=== PATIENT | female | born 1950 | race Caucasian/White ===

== ENCOUNTER 2016-10-22 18:17 | Inpatient (IN) ==
[2016-10-22] MEDS ORDERED: 0.9 % Sodium Chloride 1,000 ML IVC ONE ×3 (18:40→20:57)
[2016-10-22] MEDS ORDERED: *HR* Morphine 2 MG/ML SYRINGE IVP ONE (18:40)
[2016-10-22] MEDS ORDERED: Ondansetron 4 MG/2 ML VIAL IVP ONE (18:40)
--- NOTE | 2016-10-22 19:07 | Emergency Department Note ---
START Narrative - START START: 66-year-old female presents with multiple complaints. Patient states that she has been not feeling well for the past month. She reports nausea but has not vomited over the past week. Patient denies fever, chest pain, palpitations, diarrhea, rash. Patient states her symptoms have become progressively worse over the past few days. Denies near syncopal symptoms. On physical examination the patient has lungs that are clear to auscultation bilaterally. The heart rate was tachycardic without evidence of murmur. Abdomen is tender to palpation in bilateral lower quadrants without evidence of rigidity, guarding , rebound. Patient denies vaginal bleeding or vaginal discharge. ECG - interpreted by ED physician. Rate 127 sinus tachycardia, no STEMI
[2016-10-22] MEDS ORDERED: *HR* Morphine 10 MG/ML VIAL IVP ONE (19:15)
--- NOTE | 2016-10-22 19:15 | Emergency Department Note ---
Disposition Clinical Impression: Hyperglycemia, Dehydration Vomiting Qualifiers: Vomiting type: unspecified Vomiting Intractability: non-intractable Nausea presence: with nausea Qualified Code(s): R11.2 - Nausea with vomiting, unspecified Disposition: Admitted As Inpatient Condition: Good Referrals: Nikhil Mcallister MD [Primary Care Provider] - Forms: ED Satisfaction Letter Time of Disposition: 21:32 General Adult HPI - General Chief complaint: ED Nausea/Vomiting/Diarrhea Stated complaint: "Sick for months" Time Seen by Provider: 10/22/16 19:11 Source: patient Mode of arrival: ambulatory Limitations: no limitations Nursing Notes Reviewed: Yes Vital Signs Reviewed: Yes - History of Present Illness HPI Narrative: As noted in the start note, this is a 66-year-old female with history of non- insulin-dependent diabetes that presents with significant malaise, generalized weakness, and exertional dyspnea that is worsening over the last few days, but has been going on for the last month or so. It is associated with nausea and loss of appetite today. She denies any chest pain, palpitations, diaphoresis. She denied any abdominal pain to me except for when she is vomiting. She did no abdominal pain to Dr. Wiley. She denies any swelling, fever, confusion, headache, vision problems, productive cough, changes in bowel movements. She does know urinary frequency. She denies any dysuria or hematuria. She denies medication noncompliance, but does note that she has not checked her blood sugar in weeks. Pain Scale: 10 - Related Data Home Medications Medication Instructions Recorded Confirmed Aspirin Enteric Coated [Aspirin EC] 81 mg PO DAILY 06/01/15 11/17/15 Atorvastatin Calcium [Lipitor] 20 mg PO DAILY 06/01/15 11/17/15 Nebivolol [Bystolic] 2.5 mg PO DAILY 06/01/15 11/17/15 Ranitidine HCl [Zantac] 150 mg PO BID 06/01/15 11/17/15 Lisinopril [Zestril] 10 mg PO DAILY 11/17/15 11/17/15 Previous Rx's Medication Instructions Recorded Cyanocobalamin (Vitamin B-12) 1,000 mcg PO DAILY #30 tablet 06/05/15 [Vitamin B-12] Cyclobenzaprine HCl 5 mg PO TID PRN #21 tablet 06/05/15 OxyCODONE Immed Rel [Roxicodone 5 5 mg PO Q4HR PRN #28 tablet 06/05/15 MG] Allergies Allergy/AdvReac Type Severity Reaction Status Date / Time aspirin Allergy Hives Verified 11/17/15 10:31 Sulfa (Sulfonamide Allergy Rash Verified 03/16/15 18:10 Antibiotics) povidone-iodine AdvReac Rash Verified 11/17/15 10:31 [From Betadine] soap [From Betadine] AdvReac Rash Verified 11/17/15 10:31 All systems ED: reviewed and negative except as stated. Past Medical History - Past Medical History Attestation: Yes The following information was validated with the patient. Source: patient Medical history: Reports: diabetes, hypertension Surgical history: Reports: non-contributory, orthopedic, other Psychiatric history: Reports: no psych history TALENT SOURCER history: Reports: no TALENT SOURCER history - Social History Smoking Status: Never smoker Smokeless Tobacco Status: No Alcohol use: Reports: none Drug use: Reports: none Physical Exam - Head Head exam: atraumatic, normocephalic, normal inspection - Eye Eye exam: Present: normal appearance, PERRL, EOMI - ENT ENT exam: normal exam, normal oropharynx, mucous membranes moist - Neck Neck exam: Present: normal inspection, full ROM, trachea midline - Chest Chest inspection: Present: normal inspection, symmetric chest wall rise - Respiratory Respiratory exam: Clear to auscultation bilaterally without wheezes rales or rhonchi Cardiovascular Patient is tachycardic. Otherwise regular without murmurs. - Abdominal Exam Abdominal exam was benign for me. Abdomen was soft and nontender without masses , rigidity, or guarding. - Extremities Exam Extremities exam: Present: normal inspection, full ROM - Back Exam Back exam: Present: normal inspection, full ROM. Absent: tenderness, CVA tenderness (R), CVA tenderness (L) - Neurological Exam Neurological exam: Present: alert, oriented X3, CN II-XII intact - Psychiatric Psychiatric exam: Present: normal affect, normal mood - Skin Skin exam: Present: warm, dry, intact. - General Limitations: no limitations General appearance: alert, in no apparent distress Course - Reevaluation(s) Reevaluation #1: Blood sugar elevated to 665. PH and bicarbonate are normal. Patient is receiving 2 L of IV fluids and 10 units of subcutaneous insulin. Original urine was apparently misplaced by lab. We will resend the urine. Patient accepted to hospitalist by Dr. Arango. She is aware the urine is not resulted yet. Time: 21:31 Vital Signs Temperature 98.8 F 10/22/16 18:19 Pulse Rate 137 10/22/16 18:19 Respiratory Rate 21 10/22/16 18:19 Blood Pressure 171/86 10/22/16 18:19 O2 Sat by Pulse Oximetry 96 10/22/16 18:19 Temperature 98.8 F 10/22/16 18:29 Pulse Rate 114 10/22/16 20:04 Respiratory Rate 21 10/22/16 18:29 Blood Pressure 166/111 10/22/16 20:04 O2 Sat by Pulse Oximetry 96 10/22/16 18:29 Oxygen Delivery Oxygen Delivery Room Air Medical Decision Making - Lab Data Result diagrams: 10/22/16 19:13 10/22/16 20:11 Lab Results 10/22/16 10/22/16 10/22/16 Range/Units 19:13 19:20 20:11 WBC 9.9 (4.3-11.1) K/mcL RBC 4.84 (3.82-4.97) M/mcL Hgb 15.1 (11.5-15.4) g/dL Hct 44.0 (35.3-44.9) % MCV 90.9 (83.0-100.0) fL MCH 31.2 (28.0-33.3) pg MCHC 34.3 (31.6-35.5) g/dL RDW 12.8 (11.5-14.5) % Plt Count 181 (140-400) K/mcL MPV 12.0 (9.4-12.4) fL Immature Gran % 0.7 (0-4) % Seg Neutrophils % 73.6 % Lymphocytes % 14.1 % Monocytes % 11.1 % Eosinophils % 0.2 % Basophils % 0.3 % Neutrophils # 7.3 (1.6-8.9) K/mcL Lymphocytes # 1.4 (0.6-4.6) K/mcL Monocytes # 1.1 (0.0-1.3) K/mcL Eosinophils # 0.0 (0.0-0.6) K/mcL Basophils # 0.0 (0.0-0.2) K/mcL VBG pH 7.42 (7.32-7.42) pH Units VBG pCO2 38 L (41-51) mmHg VBG pO2 50 H (25-40) mmHg VBG HCO3 24.6 (21-27) mEq/L Sodium 128 L (136-145) mEq/L Potassium 4.9 H (3.5-4.5) mEq/L Chloride 95 L (98-109) mEq/L Carbon Dioxide 21 (19-29) mEq/L BUN 8 (7-20) mg/dL Creatinine 1.18 H (0.57-1.11) mg/dL Est GFR ( Amer) 56 L (> 60) Est GFR (Non-Af Amer) 46 L (> 60) BUN/Creatinine Ratio 7 (6-26) Glucose 665 H* (70-99) mg/dL Calculated Osmolality 296 (280-300) Lactic Acid (0.5-2.2) mmol/L Calcium 9.3 (8.6-10.8) mg/dL Total Bilirubin 0.9 (0.2-1.2) mg/dL AST 17 (5-34) Units/L ALT 27 (0-55) Units/L Alkaline Phosphatase 155 H (38-126) Units/L Serum Total Protein 6.4 (6.0-8.3) g/dL Albumin 2.7 L (3.5-5.0) g/dL Globulin 3.7 H (2.4-3.5) g/dL Albumin/Globulin Ratio 0.7 L (1.1-2.2) Lipase 186 H (8-78) Units/L Beta-Hydroxybutyric Acd (0.02-0.27) mmol/L 10/22/16 10/22/16 Range/Units 20:11 20:11 WBC (4.3-11.1) K/mcL RBC (3.82-4.97) M/mcL Hgb (11.5-15.4) g/dL Hct (35.3-44.9) % MCV (83.0-100.0) fL MCH (28.0-33.3) pg MCHC (31.6-35.5) g/dL RDW (11.5-14.5) % Plt Count (140-400) K/mcL MPV (9.4-12.4) fL Immature Gran % (0-4) % Seg Neutrophils % % Lymphocytes % % Monocytes % % Eosinophils % % Basophils % % Neutrophils # (1.6-8.9) K/mcL Lymphocytes # (0.6-4.6) K/mcL Monocytes # (0.0-1.3) K/mcL Eosinophils # (0.0-0.6) K/mcL Basophils # (0.0-0.2) K/mcL VBG pH (7.32-7.42) pH Units VBG pCO2 (41-51) mmHg VBG pO2 (25-40) mmHg VBG HCO3 (21-27) mEq/L Sodium (136-145) mEq/L Potassium (3.5-4.5) mEq/L Chloride (98-109) mEq/L Carbon Dioxide (19-29) mEq/L BUN (7-20) mg/dL Creatinine (0.57-1.11) mg/dL Est GFR ( Amer) (> 60) Est GFR (Non-Af Amer) (> 60) BUN/Creatinine Ratio (6-26) Glucose (70-99) mg/dL Calculated Osmolality (280-300) Lactic Acid 2.5 H (0.5-2.2) mmol/L Calcium (8.6-10.8) mg/dL Total Bilirubin (0.2-1.2) mg/dL AST (5-34) Units/L ALT (0-55) Units/L Alkaline Phosphatase (38-126) Units/L Serum Total Protein (6.0-8.3) g/dL Albumin (3.5-5.0) g/dL Globulin (2.4-3.5) g/dL Albumin/Globulin Ratio (1.1-2.2) Lipase (8-78) Units/L Beta-Hydroxybutyric Acd 0.64 H (0.02-0.27) mmol/L - EKG Data EKG #1 EKG attestation: Yes I reviewed and interpreted this EKG. EKG results narrative: Sinus tachycardia 127 with left axis deviation. No ST elevation or depression. No significant change when compared with 01/22/2016 other than rate.
[2016-10-22 19:27] LABS: VBG HCO3 24.6 mEq/L (21-27); VBG PH 7.42 pH Units (7.32-7.42)
[2016-10-22 19:31] LABS: Basophils % 0.3 %; Eosinophils % 0.2 %; Hemoglobin 15.1 g/dL (11.5-15.4); Immature Granulocytes % 0.7 % (0-4); Lymphocytes # 1.4 K/mcL (0.6-4.6); Lymphocytes % 14.1 %; Mean Corpuscular HGB Conc 34.3 g/dL (31.6-35.5); Mean Corpuscular Hemoglobin 31.2 pg (28.0-33.3); Mean Corpuscular Volume 90.9 fL (83.0-100.0); Monocytes # 1.1 K/mcL (0.0-1.3); Monocytes % 11.1 %; Neutrophils # 7.3 K/mcL (1.6-8.9); Platelet Count 181 K/mcL (140-400); Red Blood Count 4.84 M/mcL (3.82-4.97); Red Cell Distribution Width 12.8 % (11.5-14.5); Segmented Neutrophils % 73.6 %
[2016-10-22 20:40] LABS: Albumin 2.7 g/dL (3.5-5.0); Albumin/Globulin Ratio 0.7 (1.1-2.2); Bilirubin,Total 0.9 mg/dL (0.2-1.2); Calcium 9.3 mg/dL (8.6-10.8); Globulin 3.7 g/dL (2.4-3.5); Potassium 4.9 mEq/L (3.5-4.5); Total Protein 6.4 g/dL (6.0-8.3)
[2016-10-22] MEDS ORDERED: Insulin Regular, Human 100 UNIT/ML SQ ONE (20:57)
--- NOTE | 2016-10-22 21:47 | Emergency Department Note ---
Disposition Clinical Impression: Hyperglycemia, Dehydration Vomiting Qualifiers: Vomiting type: unspecified Vomiting Intractability: non-intractable Nausea presence: with nausea Qualified Code(s): R11.2 - Nausea with vomiting, unspecified Disposition: Admitted As Inpatient Condition: Good General Adult HPI - General Chief complaint: ED Nausea/Vomiting/Diarrhea Stated complaint: "Sick for months" Time Seen by Provider: 10/22/16 19:11 Source: patient Mode of arrival: ambulatory Limitations: no limitations - History of Present Illness Pain Scale: 10 - Related Data Home Medications Medication Instructions Recorded Confirmed Aspirin Enteric Coated [Aspirin EC] 81 mg PO DAILY 06/01/15 10/22/16 Ranitidine HCl [Zantac] 150 mg PO BID 06/01/15 10/22/16 Atorvastatin [Lipitor] 10 mg PO HS 10/22/16 10/22/16 Cyclobenzaprine HCl 5 mg PO BID PRN 10/22/16 10/22/16 HYDROcodone/Acet 5/325 mg [[place] 1 tab PO Q6H PRN 10/22/16 10/22/16 5-325 mg] Hydrochlorothiazide [Microzide] 12.5 mg PO DAILY 10/22/16 10/22/16 Levothyroxine [Synthroid] 25 mcg PO 0630 10/22/16 10/22/16 Lisinopril [Zestril] 20 mg PO DAILY 10/22/16 10/22/16 amLODIPine [Norvasc] 5 mg PO DAILY 10/22/16 10/22/16 Previous Rx's Medication Instructions Recorded Cyanocobalamin (Vitamin B-12) 1,000 mcg PO DAILY #30 tablet 06/05/15 [Vitamin B-12] Allergies Allergy/AdvReac Type Severity Reaction Status Date / Time aspirin Allergy Hives Verified 11/17/15 10:31 Sulfa (Sulfonamide Allergy Rash Verified 03/16/15 18:10 Antibiotics) povidone-iodine AdvReac Rash Verified 11/17/15 10:31 [From Betadine] soap [From Betadine] AdvReac Rash Verified 11/17/15 10:31 Past Medical History - Past Medical History Medical history: Reports: diabetes, hypertension Surgical history: Reports: non-contributory, orthopedic, other Psychiatric history: Reports: no psych history SALES AND EVENTS COORDINATOR history: Reports: no SALES AND EVENTS COORDINATOR history - Social History Smoking Status: Never smoker Smokeless Tobacco Status: No Alcohol use: Reports: none Drug use: Reports: none Physical Exam - General Limitations: no limitations General appearance: alert, in no apparent distress Course - Reevaluation(s) Reevaluation #1: I saw the patient with the resident, Dr. Holman. We assumed care of the case at change of shift. Patient presents feeling ill for a couple of weeks but over the past couple of days been vomiting and now dry heaving. Unable to eat or drink at home. She looks dry clinically. Sugar is very high but she is not acidotic. She does have some ketones. She is on the verge of DKA but not fully in to it yet I think is a good idea to bring her in and get things corrected before she tips over. Time: 21:47 Vital Signs Temperature 98.8 F 10/22/16 18:19 Pulse Rate 137 10/22/16 18:19 Respiratory Rate 21 10/22/16 18:19 Blood Pressure 171/86 10/22/16 18:19 O2 Sat by Pulse Oximetry 96 10/22/16 18:19 Temperature 98.8 F 10/22/16 18:29 Pulse Rate 114 10/22/16 20:04 Respiratory Rate 21 10/22/16 18:29 Blood Pressure 166/111 10/22/16 20:04 O2 Sat by Pulse Oximetry 96 10/22/16 18:29 Oxygen Delivery Oxygen Delivery Room Air Medical Decision Making - Lab Data Result diagrams: 10/22/16 19:13 10/22/16 20:11 Lab Results 10/22/16 10/22/16 10/22/16 Range/Units 19:13 19:20 20:11 WBC 9.9 (4.3-11.1) K/mcL RBC 4.84 (3.82-4.97) M/mcL Hgb 15.1 (11.5-15.4) g/dL Hct 44.0 (35.3-44.9) % MCV 90.9 (83.0-100.0) fL MCH 31.2 (28.0-33.3) pg MCHC 34.3 (31.6-35.5) g/dL RDW 12.8 (11.5-14.5) % Plt Count 181 (140-400) K/mcL MPV 12.0 (9.4-12.4) fL Immature Gran % 0.7 (0-4) % Seg Neutrophils % 73.6 % Lymphocytes % 14.1 % Monocytes % 11.1 % Eosinophils % 0.2 % Basophils % 0.3 % Neutrophils # 7.3 (1.6-8.9) K/mcL Lymphocytes # 1.4 (0.6-4.6) K/mcL Monocytes # 1.1 (0.0-1.3) K/mcL Eosinophils # 0.0 (0.0-0.6) K/mcL Basophils # 0.0 (0.0-0.2) K/mcL VBG pH 7.42 (7.32-7.42) pH Units VBG pCO2 38 L (41-51) mmHg VBG pO2 50 H (25-40) mmHg VBG HCO3 24.6 (21-27) mEq/L Sodium 128 L (136-145) mEq/L Potassium 4.9 H (3.5-4.5) mEq/L Chloride 95 L (98-109) mEq/L Carbon Dioxide 21 (19-29) mEq/L BUN 8 (7-20) mg/dL Creatinine 1.18 H (0.57-1.11) mg/dL Est GFR ( Amer) 56 L (> 60) Est GFR (Non-Af Amer) 46 L (> 60) BUN/Creatinine Ratio 7 (6-26) Glucose 665 H* (70-99) mg/dL Calculated Osmolality 296 (280-300) Lactic Acid (0.5-2.2) mmol/L Calcium 9.3 (8.6-10.8) mg/dL Total Bilirubin 0.9 (0.2-1.2) mg/dL AST 17 (5-34) Units/L ALT 27 (0-55) Units/L Alkaline Phosphatase 155 H (38-126) Units/L Serum Total Protein 6.4 (6.0-8.3) g/dL Albumin 2.7 L (3.5-5.0) g/dL Globulin 3.7 H (2.4-3.5) g/dL Albumin/Globulin Ratio 0.7 L (1.1-2.2) Lipase 186 H (8-78) Units/L Beta-Hydroxybutyric Acd (0.02-0.27) mmol/L 10/22/16 10/22/16 Range/Units 20:11 20:11 WBC (4.3-11.1) K/mcL RBC (3.82-4.97) M/mcL Hgb (11.5-15.4) g/dL Hct (35.3-44.9) % MCV (83.0-100.0) fL MCH (28.0-33.3) pg MCHC (31.6-35.5) g/dL RDW (11.5-14.5) % Plt Count (140-400) K/mcL MPV (9.4-12.4) fL Immature Gran % (0-4) % Seg Neutrophils % % Lymphocytes % % Monocytes % % Eosinophils % % Basophils % % Neutrophils # (1.6-8.9) K/mcL Lymphocytes # (0.6-4.6) K/mcL Monocytes # (0.0-1.3) K/mcL Eosinophils # (0.0-0.6) K/mcL Basophils # (0.0-0.2) K/mcL VBG pH (7.32-7.42) pH Units VBG pCO2 (41-51) mmHg VBG pO2 (25-40) mmHg VBG HCO3 (21-27) mEq/L Sodium (136-145) mEq/L Potassium (3.5-4.5) mEq/L Chloride (98-109) mEq/L Carbon Dioxide (19-29) mEq/L BUN (7-20) mg/dL Creatinine (0.57-1.11) mg/dL Est GFR ( Amer) (> 60) Est GFR (Non-Af Amer) (> 60) BUN/Creatinine Ratio (6-26) Glucose (70-99) mg/dL Calculated Osmolality (280-300) Lactic Acid 2.5 H (0.5-2.2) mmol/L Calcium (8.6-10.8) mg/dL Total Bilirubin (0.2-1.2) mg/dL AST (5-34) Units/L ALT (0-55) Units/L Alkaline Phosphatase (38-126) Units/L Serum Total Protein (6.0-8.3) g/dL Albumin (3.5-5.0) g/dL Globulin (2.4-3.5) g/dL Albumin/Globulin Ratio (1.1-2.2) Lipase (8-78) Units/L Beta-Hydroxybutyric Acd 0.64 H (0.02-0.27) mmol/L Attestation Statement - Attestation Attestation: I, Dr. Gee, examined this patient [id number] and my medical decision- making was reviewed with Dr. Holman, Resident Physician. I agree with the documented findings, disposition and treatment plan as described except to the extent set forth below. Please see my progress notes for details.
[2016-10-22 21:54] LABS: Bilirubin,Urine Negative (Negative); Blood,Urine Small (Negative); Clarity,Urine Cloudy (Clear); Color,Urine Yellow (Yellow); Glucose,Urine (UA) >=1000 mg/dL (Normal); Ketones,Urine Negative (Negative); Leukocyte Esterase,Urine Small (Negative); Nitrite,Urine Positive (Negative); Protein,Urine 30 mg/dL (Neg-Trace); Specific Gravity,Urine > 1.030 (1.010-1.025); Urobilinogen,Urine Normal (Normal)
[2016-10-22 21:56] LABS: Bacteria,Urine Many per hpf (None-Few); Hyaline Casts,Urine None Seen per lpf (None-Few); WBC,Urine TNTC per hpf (0-3)
[2016-10-22 22:08] LABS: RBC,Urine 0-3 per hpf (0-3); Squamous Epithelial Cell,Urine Few per lpf (None-Few)
[2016-10-22] MEDS ORDERED: Naloxone 0.4 MG/ML INJ IVP PRN (22:50)
[2016-10-22] MEDS ORDERED: *HR* Morphine 2 MG/ML SYRINGE IVP PRN (22:50)
--- NOTE | 2016-10-22 22:56 | Internal Med History&Physical ---
Date of Encounter: 10/23/16 Time of Encounter: 22:53 Assessment and Plan (1) Hyperglycemia Current visit: Yes Status: Acute Patient appears to be an HHS. She is not acidotic, does not have an anion gap, she does not appear to be in DKA. Possibly triggered by urinary tract infection , complicated by medication noncompliance as the patient has not taken her victoza in 5 days. Patient has received a total of 2 L bolus in the emergency department, we will transition to maintenance fluid per [facility] protocol. Patient will be placed on IV insulin per protocol. BMPs every 4 hours, Accu-Cheks hourly (2) Urinary tract infection Current visit: Yes Status: Acute Patient has evidence of urinary tract infection on urinalysis with positive nitrites and small leukocyte esterase with too numerous to count white blood cells. We will place on Rocephin. Urine sent for culture. Qualifiers: Urinary tract infection type: acute cystitis Hematuria presence: without hematuria Qualified Code(s): N30.00 - Acute cystitis without hematuria (3) GWENDOLYN (acute kidney injury) Current visit: Yes Status: Acute Creatinine 1.18 on presentation, kidney function is normal at baseline. Likely due to dehydration. We will rehydrate as discussed above and recheck (4) Lactic acidosis Current visit: Yes Status: Acute Likely related to dehydration. Patient does not appear septic but we will fluid hydrate as discussed above. Antibiotics and been started, blood cultures are ordered. Will trend lactic acid. (5) Diabetes mellitus Current visit: No Status: Chronic Treated home with Victoza. Patient has not taken her medicine the last 5 days. Qualifiers: Diabetes mellitus type: type 2 Diabetes mellitus complication status: with unspecified complications Diabetes mellitus half-way insulin use: without superintendent marine oil terminal use Qualified Code(s): E11.8 - Type 2 diabetes mellitus with unspecified complications (6) Hypertension Current visit: No Status: Chronic Hold antihypertensives at this time. Qualifiers: Hypertension type: essential hypertension Qualified Code(s): I10 - Essential (primary) hypertension (7) DVT prophylaxis Current visit: Yes Status: Acute Heparin 5000 units subcutaneous twice a day. Internal Medicine - H&P: HPI Chief complaint: Abdominal pain Admitted From: Emergency Dept Plans for Post Hospital Care: Home History of present illness: Ms. Truong is a 66 year old female with history of ptr-[id number]-iqgsciorn type 2 diabetes and hypertension presents with generalized malaise and abdominal pain. She states she is not felt well for 3 weeks. Her symptoms began with a sore throat that resolved after a few days she continued to have generalized malaise and fatigue. No other week ago she had several episodes of vomiting and diarrhea that resolved after 2 days. She states over the last 5 days she has had some nausea and generalized abdominal pain with dry heaves but no vomiting or diarrhea. She also states that over the last several days she has had polyuria and polydipsia. Subjective fevers and chills. She denies chest pain, shortness of breath, dysuria, hematuria. Past Med Surg Social Fam HX - Past Medical History Medical history: diabetes, hypertension Psychiatric history: no psych history - Past Surgical History Surgical History: non-contributory, orthopedic, other - Social History Smoking Status: Never smoker Smokeless Tobacco Status: No Alcohol use: none Drug use: none - Family History Father Living Status: Hx Family Cardiac Disorders: Yes Internal Medicine - H&P: Meds Aspirin Enteric Coated [Aspirin EC] 81 mg PO DAILY 06/01/15 [History] Ranitidine HCl [Zantac] 150 mg PO BID 06/01/15 [History] Cyanocobalamin (Vitamin B-12) [Vitamin B-12] 1,000 mcg PO DAILY #30 tablet 06/05 [Rx] Atorvastatin [Lipitor] 10 mg PO HS 10/22/16 [History] Cyclobenzaprine HCl 5 mg PO BID PRN 10/22/16 [History] HYDROcodone/Acet 5/325 mg [[place] 5-325 mg] 1 tab PO Q6H PRN 10/22/16 [History] Hydrochlorothiazide [Microzide] 12.5 mg PO DAILY 10/22/16 [History] Levothyroxine [Synthroid] 25 mcg PO 0630 10/22/16 [History] Lisinopril [Zestril] 20 mg PO DAILY 10/22/16 [History] amLODIPine [Norvasc] 5 mg PO DAILY 10/22/16 [History] Allergies aspirin Allergy (Verified 11/17/15 10:31) Hives HIVES IF TAKES OVER 81 MG Sulfa (Sulfonamide Antibiotics) Allergy (Verified 03/16/15 18:10) Rash povidone-iodine [From Betadine] Adverse Reaction (Verified 11/17/15 10:31) Rash soap [From Betadine] Adverse Reaction (Verified 11/17/15 10:31) Rash All Systems PM: A 10-system review of systems was performed and is negative for pertinent findings except as documented above in the HPI. - Constitutional Constitutional: chills, fatigue, fever(s), lethargy, malaise - EENT Eyes: no blurry vision, no change in vision Nose, mouth and throat: sore throat, no sinus pain, no sinus pressure - Cardiovascular Cardiovascular ROS IM: no chest pain, no dyspnea, no edema, no lightheadedness, no palpitations, no syncope - Respiratory Respiratory: no cough, no dyspnea, no wheezing, no chest congestion, no excessive phlegm production, no change in phlegm color - Gastrointestinal Gastrointestinal: abdominal pain, loose stools, nausea, vomiting, no hematemesis , no hematochezia, no melena - Genitourinary Genitourinary: urinary frequency, no dysuria, no hematuria, no urinary hesitancy , no urinary incontinence, no urinary urgency - Musculoskeletal Musculoskeletal ROS IM: no numbness, no tingling - Psychiatric Psychiatric: no anxiety, no depression - Endocrine Endocrine IM: fatigue, polydipsia, polyuria, no flushing - Hematologic/Lymphatic Hematologic/Lymphatic: no easy bleeding, no easy bruising - Constitutional Vitals: Temp Pulse Resp BP Pulse Ox 98.8 F 114 16 155/86 96 10/22/16 18:29 10/22/16 20:04 10/22/16 22:28 10/22/16 22:28 10/22/16 18:29 General appearance: Present: A&O X 3, no acute distress - Head Head exam: Present: atraumatic, normal inspection, normocephalic - Eye Eye exam: Present: EOMI, PERRL - ENT ENT exam: Present: mucous membranes dry, normal oropharynx - Neck Neck exam general surgery: Present: full ROM. Absent: tenderness - Respiratory Respiratory exam: Present: CTAB. Absent: rales, rhonchi, wheezes - Cardiovascular Cardiovascular exam: Present: RRR. Absent: gallop, rubs, systolic murmur - GI/Abdominal GI/Abdominal exam: Present: normal bowel sounds, soft, tenderness (Diffuse, worse than the left lower quadrant), no peritoneal signs. Absent: distended - Extremities Exam Extremities exam: Present: warm. Absent: pedal edema, tenderness - Neurological Exam Neurological exam: Present: alert, oriented X3, no focal deficits Internal Med - H&P Results - Labs CBC & Chem 7: 10/22/16 19:13 10/23/16 00:34 Labs: Urine 10/22/16 Range/Units 21:34 Urine Color Yellow (Yellow) Urine Clarity Cloudy A (Clear) Urine pH 6.0 (5.0-8.0) pH Units Ur Specific Gilli[place] > 1.030 H (1.010-1.025) Urine Protein 30 H (Neg-Trace) mg/dL Urine Glucose (UA) >=1000 H (Normal) mg/dL
[2016-10-22] MEDS ORDERED: D5% in 0.45% NACL 1,000 ML IVC PRN (23:09)
[2016-10-22] MEDS ORDERED: Insulin LISPRO 300 UNITS/3 ML VIAL SQ PRN (23:09)
[2016-10-22] MEDS ORDERED: D5% in 0.45% NACL w KCl 20 MEQ/1,000 ML MLS IVC PRN (23:09)
[2016-10-22] MEDS ORDERED: *HR* Dextrose 50 % in Water (Syg) 50 ML SYRINGE IVP PRN (23:09)
[2016-10-22] MEDS ORDERED: Insulin LISPRO 300 UNITS/3 ML VIAL SQ ONE (23:09)
[2016-10-22] MEDS ORDERED: 0.45 % Sodium Chloride w/KCl 20 MEQ/1,000 ML MLS IVC SCH (23:15)
[2016-10-22] MEDS ORDERED: Insulin Human Regular 100 UNIT in 0.9 % Sodium Chloride 100 ML IVC SCH (23:15)
[2016-10-23 00:54] LABS: Estimated Average Glucose > 355 mg/dl; Hemoglobin A1C >= 14.1 %
[2016-10-23 00:56] LABS: BUN/Creatinine Ratio 7 (6-26); Blood Urea Nitrogen 8 mg/dL (7-20); Calcium 9.1 mg/dL (8.6-10.8); Carbon Dioxide 19 mEq/L (19-29); Chloride 102 mEq/L (98-109); Glucose 353 mg/dL (70-99); Osmolality,Calculated 292 (280-300); Potassium 4.3 mEq/L (3.5-4.5); eGFR For African Americans > 60 (> 60); eGFR For Non-African Americans 51 (> 60)
[2016-10-23 00:59] LABS: Sodium 135 mEq/L (136-145)
[2016-10-23] MEDS ORDERED: D5% in Water 1,000 ML IVC PRN (02:10)
[2016-10-23] MEDS ORDERED: Dextrose Gel 15 GM PO PRN ×2 (02:10)
[2016-10-23] MEDS: Insulin DETEMIR 100 UNIT/ML X5UNITS SQ SCH ×2 (02:27→20:31)
--- NOTE | 2016-10-23 02:37 | Event Note ---
Date of Encounter: 10/23/16 Time of Encounter: 00:45 66-year-old female with history of diabetes, presents with complaints of flulike symptoms including myalgia, malaise, anorexia and dry heaves for the last 1-2 weeks. Patient evaluated along with resident, agree essentially with Resident's H&P; Patient seen and examined at bedside. Noted to be awake, alert and oriented 3. Tachycardic, regular rate and rhythm. Lungs are clear to auscultation. Abdomen is soft, nondistended, mild left lower quadrant tenderness with no guarding or rigidity. Labs reviewed-elevated blood sugar with normal anion gap, normal pH on VBG, normal serum bicarbonate, elevated serum creatinine. Hyperglycemic hyperosmolar nonketotic state- due to dehydration from recent gastroenteritis and flulike illness, possible UTI. Start IV insulin drip along with aggressive IV hydration, monitor urine output and vital signs closely. Every hourly Accu-Cheks. Keep nothing by mouth for now until blood sugars begin to improve. Monitor and replete electrolytes as needed. High risk for complications. Diabetes mellitus type 2-poorly controlled, hemoglobin A1c noted to be more than 14%. patient would likely benefit from insulin treatment as an outpatient. Continue Accu-Chek blood glucose monitoring with IV insulin at this time. UTI- urinalysis suggestive of UTI with positive nitrite, leukocyte esterase and too numerous to count WBC. Start IV Rocephin and follow up urine culture. Noted to have lactic acidosis, which is mostly due to dehydration rather than sepsis. Continue IV hydration and monitor closely.
[2016-10-23] MEDS: Insulin LISPRO 300 UNITS/3 ML VIAL SQ SCH ×7 (03:33→17:31)
[2016-10-23] MEDS ORDERED: 0.9 % Sodium Chloride 1,000 ML ONE (03:37)
[2016-10-23] MEDS: 0.9 % Sodium Chloride 1,000 ML IVC SCH ×2 (04:03→14:11)
[2016-10-23] MEDS ORDERED: Insulin LISPRO 300 UNITS/3 ML VIAL SQ STA (04:04)
[2016-10-23 04:40] LABS: Basophils % 0.3 %; Eosinophils # 0.1 K/mcL (0.0-0.6); Eosinophils % 0.5 %; Hematocrit 39.3 % (35.3-44.9); Hemoglobin 13.7 g/dL (11.5-15.4); Lymphocytes # 1.9 K/mcL (0.6-4.6); Lymphocytes % 19.5 %; Mean Corpuscular HGB Conc 34.9 g/dL (31.6-35.5); Mean Corpuscular Hemoglobin 32.1 pg (28.0-33.3); Mean Platelet Volume 12.1 fL (9.4-12.4); Monocytes # 1.4 K/mcL (0.0-1.3); Monocytes % 14.4 %; Neutrophils # 6.4 K/mcL (1.6-8.9); Platelet Count 166 K/mcL (140-400); Red Blood Count 4.27 M/mcL (3.82-4.97); Red Cell Distribution Width 12.8 % (11.5-14.5); Segmented Neutrophils % 64.3 %
[2016-10-23 04:42] LABS: BUN/Creatinine Ratio 10 (6-26); Blood Urea Nitrogen 9 mg/dL (7-20); Calcium 8.8 mg/dL (8.6-10.8); Carbon Dioxide 25 mEq/L (19-29); Chloride 100 mEq/L (98-109); Glucose 253 mg/dL (70-99); Osmolality,Calculated 281 (280-300); Potassium 4.3 mEq/L (3.5-4.5); Sodium 132 mEq/L (136-145); eGFR For African Americans > 60 (> 60); eGFR For Non-African Americans > 60 (> 60)
[2016-10-23] MEDS: *HR* Heparin 5,000 UNIT/ML VIAL SQ SCH ×2 (06:13→17:25)
[2016-10-23 08:03] LABS: BUN/Creatinine Ratio 10 (6-26); Blood Urea Nitrogen 9 mg/dL (7-20); Calcium 8.6 mg/dL (8.6-10.8); Carbon Dioxide 21 mEq/L (19-29); Chloride 104 mEq/L (98-109); Glucose 168 mg/dL (70-99); Osmolality,Calculated 283 (280-300); Potassium 4.3 mEq/L (3.5-4.5); Sodium 135 mEq/L (136-145); eGFR For African Americans > 60 (> 60); eGFR For Non-African Americans > 60 (> 60)
[2016-10-23] MEDS: Ondansetron 4 MG/2 ML VIAL IVP PRN ×2 (08:19→17:30)
[2016-10-23] MEDS: Acetaminophen 325 MG TABLET PO PRN ×2 (08:20→17:25)
[2016-10-23] MEDS ORDERED: 0.9 % Sodium Chloride 1,000 ML IVC SCH (16:59)
--- NOTE | 2016-10-23 17:00 | Electrocardiograph Report ---
[address] [place] [address] Test Date: 2016-10-22 Pat Name: Kaylie Truong Department: 103 Room: 3A44 Gender: F Rhinologist: RENETTA : 1950 Requested By: Andrea Holman Order Number: [id number] Reading MD: John Juan MD Measurements Intervals [place] Rate: 127 P: 56 [place]: 145 QRS: 13 QRSD: 77 T: 72 QT: 276 QTc: 351 Interpretive Statements SINUS TACHYCARDIA POSSIBLE INFERIOR MYOCARDIAL INFARCTION, PROBABLY OLD Electronically Signed On 10-23-2016 16:58:59 EDT by John Juan MD
[2016-10-23] MEDS ORDERED: *HR* HYDROcodone/Acet 5/325 mg TABLET PO PRN (17:03)
--- NOTE | 2016-10-23 17:05 | Internal Med Progress Note ---
Date of Encounter: 10/23/16 Time of Encounter: 09:45 - Assessment and plan (1) Hyperglycemia Current Visit: Yes Status: Acute Assessment and plan: Glucose on admission was 665. No anion gap. She received insulin drip and fluid hydration with improvement of glucose levels to 300. Follow-up Accu-Chek is 128 this afternoon. We will continue Levemir at bedtime. Insulin sliding scale. Diabetic diet. Patient with hemoglobin A1c above 14. Patient will need insulin at home. Consult development educator. (2) GWENDOLYN (acute kidney injury) Current Visit: Yes Status: Resolved Assessment and plan: resolved. Prerenal secondary to dehydration. (3) Urinary tract infection Current Visit: Yes Status: Acute Assessment and plan: Urinalysis is suspected of urinary tract infection. Continue IV ceftriaxone. Follow up urine culture results. Qualifiers: Urinary tract infection type: acute cystitis Hematuria presence: without hematuria Qualified Code(s): N30.00 - Acute cystitis without hematuria (4) Dehydration Current Visit: Yes Status: Acute Assessment and plan: Secondary to severe hyperglycemia, urinary tract infection and sore throat. Improved. Given poor oral intake due to nausea, I will continue IV fluids (5) Diabetes mellitus Current Visit: Yes Status: Chronic Assessment and plan: Plan as above. Qualifiers: Diabetes mellitus type: type 2 Diabetes mellitus complication status: with hyperglycemia Diabetes mellitus intermediate project manager insulin use: without intermediate project manager use Qualified Code(s): E11.65 - Type 2 diabetes mellitus with hyperglycemia (6) Hypertension Current Visit: No Status: Chronic Assessment and plan: Not well controlled. Will resume dose of amlodipine. Holding him dose of lisinopril and HCTZ due to acute kidney injury. Monitor BPP Qualifiers: Hypertension type: essential hypertension Qualified Code(s): I10 - Essential (primary) hypertension (7) Lactic acidosis Current Visit: Yes Status: Resolved Assessment and plan: Resolved. Secondary to severe dehydration. (8) Obesity (BMI 30-39.9) Current Visit: No Status: Chronic Assessment and plan: BMI 32. - Subjective Interval history: Patient feels nauseous. No good oral intake. She did not eat most of her breakfast. - Constitutional Vitals: Temp Pulse Resp BP Pulse Ox 97.7 F 99 16 146/74 97 10/23/16 13:36 10/23/16 13:36 10/23/16 13:36 10/23/16 13:36 10/23/16 13:36 General appearance: Present: A&O X 3, no acute distress - Neck Neck exam general surgery: Present: supple, trachea midline - Respiratory Respiratory exam: Present: CTAB - Cardiovascular Cardiovascular exam: Present: RRR - GI/Abdominal GI/Abdominal exam: Present: normal bowel sounds, soft. Absent: distended, tenderness - Extremities Exam Extremities exam: Absent: pedal edema - Back Exam Back exam: Absent: CVA tenderness (L), CVA tenderness (R) - Neurological Exam Neurological exam: Present: alert, oriented X3, no focal deficits, strengths equal and symetr throughout. Absent: facial droop, speech deficit - Skin Skin exam: Absent: rash Internal Medicine: Result - Labs CBC & Chem 7: 10/23/16 04:10 10/23/16 07:44 Labs: Short CBC 10/23/16 Range/Units 04:10 WBC 9.9 (4.3-11.1) K/mcL Hgb 13.7 (11.5-15.4) g/dL Hct 39.3 (35.3-44.9) % Plt Count 166 (140-400) K/mcL Neutrophils # 6.4 (1.6-8.9) K/mcL BMP 10/23/16 10/23/16 04:10 07:44 Sodium 132 L 135 L Potassium 4.3 4.3 Chloride 100 104 Carbon Dioxide 25 21 BUN 9 9 Creatinine 0.92 0.89 Glucose 253 H 168 H Calcium 8.8 8.6 Consult Discharge Plan - Plan Referrals: Jeannette Mcallister MD [Non-Partnered Physician] - 11/05/16 9:00 am
[2016-10-24] MEDS: *HR* Heparin 5,000 UNIT/ML VIAL SQ SCH ×2 (05:52→17:06)
[2016-10-24] MEDS ORDERED: Levothyroxine 25 MCG TABLET PO SCH (06:30)
[2016-10-24 06:44] LABS: Basophils % 0.5 %; Eosinophils # 0.1 K/mcL (0.0-0.6); Eosinophils % 1.4 %; Hematocrit 32.1 % (35.3-44.9); Immature Granulocytes % 1.4 % (0-4); Lymphocytes # 1.6 K/mcL (0.6-4.6); Lymphocytes % 28.1 %; Mean Corpuscular Volume 94.1 fL (83.0-100.0); Mean Platelet Volume 11.8 fL (9.4-12.4); Monocytes # 0.6 K/mcL (0.0-1.3); Monocytes % 10.3 %; Neutrophils # 3.4 K/mcL (1.6-8.9); Platelet Count 129 K/mcL (140-400); Red Blood Count 3.41 M/mcL (3.82-4.97); Red Cell Distribution Width 13.2 % (11.5-14.5); Segmented Neutrophils % 58.3 %
[2016-10-24 06:54] LABS: BUN/Creatinine Ratio 13 (6-26); Blood Urea Nitrogen 10 mg/dL (7-20); Carbon Dioxide 25 mEq/L (19-29); Chloride 107 mEq/L (98-109); Glucose 190 mg/dL (70-99); Magnesium 1.6 mg/dL (1.6-2.6); Osmolality,Calculated 286 (280-300); Potassium 4.5 mEq/L (3.5-4.5); Sodium 136 mEq/L (136-145); eGFR For African Americans > 60 (> 60); eGFR For Non-African Americans > 60 (> 60)
[2016-10-24 07:13] LABS: Hemoglobin 10.9 g/dL (11.5-15.4)
[2016-10-24] MEDS: Insulin LISPRO 300 UNITS/3 ML VIAL SQ SCH ×6 (08:15→17:04)
[2016-10-24] MEDS: Acetaminophen 325 MG TABLET PO PRN ×2 (08:20→19:45)
[2016-10-24] MEDS ORDERED: Aspirin Enteric Coated 81 MG Tablet PO SCH (09:00)
[2016-10-24] MEDS ORDERED: Cyanocobalamin (B-12) 1,000 MCG TABLET PO SCH (09:00)
[2016-10-24] MEDS ORDERED: amLODIPine 5 MG TABLET PO SCH (09:00)
--- NOTE | 2016-10-24 09:34 | Discharge Summary ---
Date of Encounter: 10/24/16 Time of Encounter: 09:31 - Discharge Diagnosis (1) Hyperglycemia Priority: Primary Status: Acute (2) GWENDOLYN (acute kidney injury) Priority: Primary Status: Resolved (3) Urinary tract infection Priority: Primary Status: Acute Qualifiers: Urinary tract infection type: acute cystitis Hematuria presence: without hematuria Qualified Code(s): N30.00 - Acute cystitis without hematuria (4) Dehydration Priority: Primary Status: Acute (5) Diabetes mellitus Priority: Primary Status: Chronic Qualifiers: Diabetes mellitus type: type 2 Diabetes mellitus complication status: with hyperglycemia 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 insulin use: without local company intermodal truck driver use Qualified Code(s): E11.65 - Type 2 diabetes mellitus with hyperglycemia (6) Hypertension Priority: Secondary Status: Chronic Qualifiers: Hypertension type: essential hypertension Qualified Code(s): I10 - Essential (primary) hypertension (7) Lactic acidosis Priority: Primary Status: Resolved (8) Obesity (BMI 30-39.9) Priority: Secondary Status: Chronic - Discharge Medications Prescriptions: Blood Sugar Diagnostic [Glucose Test Strip] 1 each MC AD #90 strip Blood-Glucose Meter [Blood Glucose Monitoring] 1 each SQ AD #1 each glipiZIDE [Glucotrol] 5 mg PO BIDWM #60 tablet Insulin Glargine [Lantus] 15 unit SQ HS #60 mls Lancets [Blood Lancets] 1 each SQ AD #90 each Sulfamethoxazole/Trimeth SS [Bactrim SS] 1 each PO BID #2 tablet Home Medications: Aspirin Enteric Coated [Aspirin EC] 81 mg PO DAILY 06/01/15 [History] Ranitidine HCl [Zantac] 150 mg PO BID 06/01/15 [History] Cyanocobalamin (Vitamin B-12) [Vitamin B12] 1,000 mcg PO DAILY #30 tablet [Rx] Atorvastatin [Lipitor] 10 mg PO HS 10/22/16 [History] Cyclobenzaprine HCl 5 mg PO BID PRN 10/22/16 [History] HYDROcodone/Acet 5/325 mg [[place] 5-325 mg] 1 tab PO Q6H PRN 10/22/16 [History] Levothyroxine [Synthroid] 25 mcg PO 0630 10/22/16 [History] amLODIPine [Norvasc] 5 mg PO DAILY 10/22/16 [History] Blood Sugar Diagnostic [Glucose Test Strip] 1 each MC AD #90 strip 10/24/16 [Rx] Blood-Glucose Meter [Blood Glucose Monitoring] 1 each SQ AD #1 each 10/24/16 [Rx ] Insulin Glargine [Lantus] 15 unit SQ HS #60 mls 10/24/16 [Rx] Lancets [Blood Lancets] 1 each SQ AD #90 each 10/24/16 [Rx] Sulfamethoxazole/Trimeth SS [Bactrim SS] 1 each PO BID #2 tablet 10/24/16 [Rx] glipiZIDE [Glucotrol] 5 mg PO BIDWM #60 tablet 10/24/16 [Rx] Allergies/Adverse Reactions: Allergies aspirin Allergy (Verified 11/17/15 10:31) Hives HIVES IF TAKES OVER 81 MG Sulfa (Sulfonamide Antibiotics) Allergy (Verified 03/16/15 18:10) Rash povidone-iodine [From Betadine] Adverse Reaction (Verified 11/17/15 10:31) Rash soap [From Betadine] Adverse Reaction (Verified 11/17/15 10:31) Rash Procedures/tests Complete & Pending: Procedures Performed prior 72 hours Category Date Time Status ECG 12 lead ECG [ECG] Routine Y 10/24/16 08:36 Completed Date of admission: 10/23/16 02:38 Primary care physician: Nikhil Mcallister MD Consults: 10/23/16 09:27 Consult to Textile Stylist [CONS] Routine Comment: Reason for Consult: poorly controlled DM - Patient Status Disposition: Home, Self-Care Condition: Good Functional capacity at discharge: independent ambulation Overall status at discharge: patient is progressing back to baseline - Discharge Instructions Instructions: Urinary Tract Infection in Women (DC), Diabetes Mellitus Type 2 in Adults (DC), Chronic Hypertension (DC), Fall Prevention (DC) Follow Up With: Jeannette Mcallister MD [Non-Partnered Physician] - 11/05/16 9:00 am Additional Instructions: PLEASE CHECK YOUR BLOOD PRESSURE TWICE DAILY. WRITE DOWN NUMBERS AND BRING RECORD TO DOCTOR'S APPOINTMENT. PLEASE CHECK YOUR BLOOD SUGAR BEFORE MEALS AND AT BEDTIME EVERY DAY. WRITE DOWN NUMBERS AND BRING RECORD TO DOCTOR'S APPOINTMENT. RESUME TAKING YOUR LISINOPRIL NEXT FridayOCTOBER 28. PLEASE FOLLOW UP WITH YOUR DOCTOR FOR DIABETES, WEIGHT LOSS PROGRAM AND HIGH BLOOD PRESSURE. - Diet and Activity Activity: resume usual activities as tolerated Diet: diabetic diet, low fat, low cholesterol, low salt diet Interval History: PATIENT DENIES ANY ABDOMINAL PAIN, NAUSEA, VOMITING, OR DIARRHEA. SHE REPORTS TENDERNESS AT RIGHT CHEST AREA. NO SHORTNESS OF BREATH, NO LEFT-SIDED CHEST PAIN. I WILL RESUME HOME DOSE OF FLEXERIL. She has been taught how to inject herself insulin as well as her diet. Hospital course: Ms. Truong is a 66 year old female with past medical history of hypertension and diabetes who presented with a chief complaint of generalized malaise and abdominal pain for 3 weeks. He was admitted with diagnosis of severe hyperglycemia with glucose 665, severe dehydration, and acute kidney injury. No anion gap. She received insulin drip and fluid hydration with rapid improvement of glucose levels to 300. She was started on Levemir, sliding scale insulin and diabetic diet. Hemoglobin A1c was above 14. Patient was explained in detail her diagnosis, treatment options including insulin at home and close follow-up appointments. She verbalized understanding and agreed with the plan. All questions answered. Urine culture positive for gram-negative rods. She seemed IV ceftriaxone and was sent home on Keflex. PLAN: Follow with primary care physician for diabetes, insulin management, urinary tract infection, and weight loss program. - Time Spent with Patient Total time spent providing and/or coordinating discharge services: - Constitutional Vitals: Temp Pulse Resp BP Pulse Ox 98.2 F 95 16 118/73 96 10/24/16 07:22 10/24/16 07:22 10/24/16 07:22 10/24/16 07:22 10/24/16 07:22 General appearance: Present: A&O X 3, no acute distress - Neck Neck exam general surgery: Present: supple, trachea midline. Absent: lymphadenopathy - Respiratory Respiratory exam: Present: CTAB - Cardiovascular Cardiovascular exam: Present: RRR - GI/Abdominal GI/Abdominal exam: Present: normal bowel sounds, soft. Absent: distended - Extremities Exam Extremities exam: Absent: pedal edema - Back Exam Back exam: Absent: CVA tenderness (L), CVA tenderness (R) - Neurological Exam Neurological exam: Present: alert, oriented X3, no focal deficits, strengths equal and symetr throughout. Absent: facial droop, speech deficit - Skin Skin exam: Absent: rash
[2016-10-24 18:58] VITALS: BP 116/65
--- NOTE | 2016-10-25 08:55 | Electrocardiograph Report ---
[place] [address] Test Date: 2016-10-24 Pat Name: Kaylie rTuong Department: 115 Room: 3A44 Gender: Maintenance Representative: JOHN : 1950 Requested By: Velma Greco Order Number: [id number] Reading MD: John Juan MD Measurements Intervals [place] Rate: 87 P: 56 [place]: 163 QRS: 17 QRSD: 73 T: 45 QT: 337 QTc: 382 Interpretive Statements SINUS RHYTHM Electronically Signed On 10-25-2016 8:54:06 EDT by John Juan MD
== END 2016-10-24 20:54 | disposition home or self-care (01) | DRG 638 ==
LOC: 2ANU 18:17 → EMEROO 18:17 → 2ANU 22:42 → 2NNU 23:40 → SUATTDRO 10-23 02:38 → 3ANU 10-23 13:28
PROVIDERS: ADMIT Internal Medicine; ATTEND Internal Medicine

== ENCOUNTER 2018-12-20 00:45 | Observation (INO) ==
[2018-12-20] MEDS ORDERED: 0.9 % Sodium Chloride 1,000 ML IVC ONE ×2 (01:01→07:42)
[2018-12-20 01:23] LABS: Bilirubin,Urine Negative (Negative); Blood,Urine Large (Negative); Clarity,Urine Turbid (Clear); Color,Urine Dark Yellow (Yellow); Glucose,Urine (UA) Normal (Normal); Ketones,Urine Trace mg/dL (Negative); Leukocyte Esterase,Urine Large (Negative); Nitrite,Urine Negative (Negative); Protein,Urine >=300 mg/dL (Neg-Trace); Specific Gravity,Urine 1.018 (1.010-1.025); Urobilinogen,Urine Normal (Normal)
[2018-12-20 01:26] LABS: Bacteria,Urine Many per hpf (None-Few); RBC,Urine 50-100 per hpf (0-3); Squamous Epithelial Cell,Urine Many per lpf (None-Few); WBC,Urine TNTC per hpf (0-3)
[2018-12-20 01:43] LABS: White Blood Count 12.1 K/mcL (4.3-11.1)
[2018-12-20 01:44] LABS: Basophils % 0.3 %; Hematocrit 40.5 % (35.3-44.9); Hemoglobin 13.4 g/dL (11.5-15.4); Immature Granulocytes % 0.6 % (0-4); Lymphocytes % 8.2 %; Mean Corpuscular HGB Conc 33.1 g/dL (31.6-35.5); Mean Corpuscular Hemoglobin 31.7 pg (28.0-33.3); Mean Corpuscular Volume 95.7 fL (83.0-100.0); Mean Platelet Volume 11.5 fL (9.4-12.4); Monocytes % 16.4 %; Neutrophils # 9.1 K/mcL (1.6-8.9); Platelet Count 161 K/mcL (140-400); Red Blood Count 4.23 M/mcL (3.82-4.97); Red Cell Distribution Width 12.3 % (11.5-14.5); Segmented Neutrophils % 74.5 %
[2018-12-20 01:50] LABS: INR 1.3; Prothrombin Time 14.4 Seconds (9.4-12.1)
[2018-12-20 01:52] LABS: Activated Partial Thrombo Time 29.2 Seconds (26.0-36.0)
[2018-12-20 02:12] LABS: Troponin I < 0.03 ng/mL (< 0.04)
[2018-12-20 02:32] LABS: Alanine Aminotransferase 14 Units/L (7-52); Albumin 3.5 g/dL (3.5-5.7); Alkaline Phosphatase 76 Units/L (34-104); Aspartate Amino Transferase 22 Units/L (13-39); BUN/Creatinine Ratio 18 (6-26); Bilirubin,Total 1.6 mg/dL (0.3-1.0); Blood Urea Nitrogen 32 mg/dL (8-23); Calcium 8.8 mg/dL (8.6-10.3); Carbon Dioxide 24 mEq/L (23-29); Chloride 94 mEq/L (98-107); Globulin 3.5 g/dL (2.4-3.5); Glucose 386 mg/dL (70-105); Osmolality,Calculated 291 (280-300); Potassium 4.4 mEq/L (3.5-5.1); Sodium 129 mEq/L (136-145); eGFR For African Americans 34 (> 60); eGFR For Non-African Americans 28 (> 60)
--- NOTE | 2018-12-20 04:15 | Emergency Department Note ---
Disposition Clinical Impression: GWENDOLYN (acute kidney injury), Hyponatremia, Dehydration, Syncope Disposition: Admitted As Inpatient Condition: Good Time of Disposition: 05:52 General Adult HPI - General Chief complaint: ED Nausea/Vomiting/Diarrhea Stated complaint: N/V / Syncopal Episodes Time Seen by Provider: 12/20/18 01:01 Source: patient, family Limitations: no limitations - History of Present Illness Pain Scale: 0 - Related Data Home Medications Medication Instructions Recorded Confirmed Aspirin Enteric Coated [Aspirin EC] 81 mg PO DAILY 06/01/15 12/21/18 Ranitidine HCl [Zantac] 150 mg PO DAILY 06/01/15 12/21/18 Atorvastatin [Lipitor] 10 mg PO HS 10/22/16 12/21/18 amLODIPine [Norvasc] 5 mg PO DAILY 10/22/16 12/21/18 Albuterol Sulfate [Ventolin Hfa] 2 puff IH Q6H 12/21/18 12/21/18 Budesonide/Formoterol 160/4.5 2 puff IH BIDR 12/21/18 12/21/18 [Symbicort 160/4.5] GlipiZIDE [Glucotrol] 5 mg PO QPM 12/21/18 12/21/18 GlipiZIDE [Glucotrol] 10 mg PO QAM 12/21/18 12/21/18 Levothyroxine Sodium [Levo-T] 175 mcg PO QAM 12/21/18 12/21/18 Liraglutide [Victoza 3-Braeden] 1.8 mg SQ DAILY 12/21/18 12/21/18 Lisinopril [Zestril] 20 mg PO DAILY 12/21/18 12/21/18 Pioglitazone [Actos] 15 mg PO DAILY 12/21/18 12/21/18 hydroCHLOROthiazide 25 mg PO DAILY 12/21/18 12/21/18 [Hydrochlorothiazide] Previous Rx's Medication Instructions Recorded Cyanocobalamin (Vitamin B-12) 1,000 mcg PO DAILY #30 tablet 06/05/15 [Vitamin B12] Cefdinir [Omnicef] 300 mg PO BID #10 capsule 12/21/18 Allergies Allergy/AdvReac Type Severity Reaction Status Date / Time aspirin Allergy Hives Verified 12/20/18 01:03 Sulfa (Sulfonamide Allergy Rash Verified 12/20/18 01:03 Antibiotics) metformin AdvReac Diarrhea Verified 12/20/18 01:03 povidone-iodine AdvReac Rash Verified 12/20/18 01:03 [From Betadine] soap [From Betadine] AdvReac Rash Verified 12/20/18 01:03 Past Medical History - Past Medical History Medical history: Reports: diabetes, hypertension Surgical history: Reports: non-contributory, orthopedic, other Psychiatric history: Reports: no psych history ELECTROTYPE SERVICER history: Reports: no ELECTROTYPE SERVICER history - Social History Smoking Status: Unknown if ever smoked Smokeless Tobacco Status: No Alcohol use: Reports: none Drug use: Reports: none Physical Exam - General Limitations: no limitations General appearance: alert, in no apparent distress Course Vital Signs Temperature 98.6 F 12/20/18 01:00 Pulse Rate 117 12/20/18 01:00 Respiratory Rate 20 12/20/18 01:00 Blood Pressure 121/70 12/20/18 01:00 O2 Sat by Pulse Oximetry 95 12/20/18 01:00 Temperature 97.8 F 12/21/18 15:57 Pulse Rate 93 12/21/18 15:57 Respiratory Rate 18 12/21/18 15:57 Blood Pressure 146/82 12/21/18 15:57 O2 Sat by Pulse Oximetry 100 12/21/18 15:57 Oxygen Delivery Oxygen Delivery Room Air Medical Decision Making - Lab Data Result diagrams: 12/21/18 05:49 12/21/18 05:49 Lab Results 12/20/18 12/20/18 12/20/18 Range/Units 01:01 01:01 01:01 WBC 12.1 H (4.3-11.1) K/mcL RBC 4.23 (3.82-4.97) M/mcL Hgb 13.4 (11.5-15.4) g/dL Hct 40.5 (35.3-44.9) % MCV 95.7 (83.0-100.0) fL MCH 31.7 (28.0-33.3) pg MCHC 33.1 (31.6-35.5) g/dL RDW 12.3 (11.5-14.5) % Plt Count 161 (140-400) K/mcL MPV 11.5 (9.4-12.4) fL Immature Gran % 0.6 (0-4) % Seg Neutrophils % 74.5 % Lymphocytes % 8.2 % Monocytes % 16.4 % Eosinophils % 0.0 % Basophils % 0.3 % Neutrophils # 9.1 H (1.6-8.9) K/mcL Lymphocytes # 1.0 (0.6-4.6) K/mcL Monocytes # 2.0 H (0.0-1.3) K/mcL Eosinophils # 0.0 (0.0-0.6) K/mcL Basophils # 0.0 (0.0-0.2) K/mcL PT 14.4 H (9.4-12.1) Seconds INR 1.3 APTT 29.2 (26.0-36.0) Seconds Sodium 129 L (136-145) mEq/L Potassium 4.4 (3.5-5.1) mEq/L Chloride 94 L (98-107) mEq/L Carbon Dioxide 24 (23-29) mEq/L BUN 32 H (8-23) mg/dL Creatinine 1.79 H (0.60-1.20) mg/dL Est GFR ( Amer) 34 L (> 60) Est GFR (Non-Af Amer) 28 L (> 60) BUN/Creatinine Ratio 18 (6-26) Glucose 386 H (70-105) mg/dL Calculated Osmolality 291 (280-300) Calcium 8.8 (8.6-10.3) mg/dL Total Bilirubin 1.6 H (0.3-1.0) mg/dL AST 22 (13-39) Units/L ALT 14 (7-52) Units/L Alkaline Phosphatase 76 (34-104) Units/L Troponin I < 0.03 (< 0.04) ng/mL Serum Total Protein 7.0 (6.4-8.9) g/dL Albumin 3.5 (3.5-5.7) g/dL Globulin 3.5 (2.4-3.5) g/dL Albumin/Globulin Ratio 1.0 L (1.1-2.2) Urine Color (Yellow) Urine Clarity (Clear) Urine pH (5.0-8.0) pH Units Ur Specific Outlook (1.010-1.025) Urine Protein (Neg-Trace) mg/dL Urine Glucose (UA) (Normal) mg/dL Urine Ketones (Negative) mg/dL Urine Blood (Negative) Urine Nitrite (Negative) Urine Bilirubin (Negative) Urine Urobilinogen (Normal) mg/dL Ur Leukocyte Esterase (Negative) Urine Microscopic RBC (0-3) per hpf Urine Microscopic WBC (0-3) per hpf Ur Squamous Epith Cells (None-Few) per lpf Urine Bacteria (None-Few) per hpf Hyaline Casts 12/20/18 Range/Units 01:14 WBC (4.3-11.1) K/mcL RBC (3.82-4.97) M/mcL Hgb (11.5-15.4) g/dL Hct (35.3-44.9) % MCV (83.0-100.0) fL MCH (28.0-33.3) pg MCHC (31.6-35.5) g/dL RDW (11.5-14.5) % Plt Count (140-400) K/mcL MPV (9.4-12.4) fL Immature Gran % (0-4) % Seg Neutrophils % % Lymphocytes % % Monocytes % % Eosinophils % % Basophils % % Neutrophils # (1.6-8.9) K/mcL Lymphocytes # (0.6-4.6) K/mcL Monocytes # (0.0-1.3) K/mcL Eosinophils # (0.0-0.6) K/mcL Basophils # (0.0-0.2) K/mcL PT (9.4-12.1) Seconds INR APTT (26.0-36.0) Seconds Sodium (136-145) mEq/L Potassium (3.5-5.1) mEq/L Chloride (98-107) mEq/L Carbon Dioxide (23-29) mEq/L BUN (8-23) mg/dL Creatinine (0.60-1.20) mg/dL Est GFR ( Amer) (> 60) Est GFR (Non-Af Amer) (> 60) BUN/Creatinine Ratio (6-26) Glucose (70-105) mg/dL Calculated Osmolality (280-300) Calcium (8.6-10.3) mg/dL Total Bilirubin (0.3-1.0) mg/dL AST (13-39) Units/L ALT (7-52) Units/L Alkaline Phosphatase (34-104) Units/L Troponin I (< 0.04) ng/mL Serum Total Protein (6.4-8.9) g/dL Albumin (3.5-5.7) g/dL Globulin (2.4-3.5) g/dL Albumin/Globulin Ratio (1.1-2.2) Urine Color Dark Yellow (Yellow) Urine Clarity Turbid A (Clear) Urine pH 6.0 (5.0-8.0) pH Units Ur Specific Outlook 1.018 (1.010-1.025) Urine Protein >=300 H (Neg-Trace) mg/dL Urine Glucose (UA) Normal (Normal) mg/dL Urine Ketones Trace H (Negative) mg/dL Urine Blood Large H (Negative) Urine Nitrite Negative (Negative) Urine Bilirubin Negative (Negative) Urine Urobilinogen Normal (Normal) mg/dL Ur Leukocyte Esterase Large H (Negative) Urine Microscopic RBC 50-100 H (0-3) per hpf Urine Microscopic WBC TNTC H (0-3) per hpf Ur Squamous Epith Cells Many H (None-Few) per lpf Urine Bacteria Many H (None-Few) per hpf Hyaline Casts Test Not Performed Attestation Statement - Attestation Attestation: I examined this patient and my medical decision-making was reviewed with the Resident Physician. I agree with the documented findings, disposition and treatment plan as described except to the extent set forth below. Patient 68-year-old female presents to emergency department with chief complaint of nausea vomiting decreased by mouth intake and 2 syncopal episodes. Patient reports not eating or drinking much this week and also been having nausea and vomiting. The patient states he feels extremely dry and states that she had 2 episodes of syncope. Patient states this time she still a little bit better denies chest pain denies shortness of breath denies abdominal pain. Exam patient awake alert no acute distress name has no focal findings Medical decision management patient underwent laboratory studies which showed evidence of acute kidney injury and also a urinary tract infection. These on the patient will be admitted for hydration case will be discussed with the hospitalist and the patient was for the Inpatient setting
--- NOTE | 2018-12-20 04:19 | Emergency Department Note ---
Disposition Clinical Impression: GWENDOLYN (acute kidney injury), Hyponatremia, Dehydration Syncope Qualifiers: Syncope type: unspecified Qualified Code(s): R55 - Syncope and collapse Disposition: Admitted As Inpatient Condition: Fair Referrals: Jeannette Mcallister MD [Primary Care Provider] - Forms: ED Satisfaction Letter Time of Disposition: 05:52 Nausea/Vomiting/Diarrhea HPI - General Chief complaint: ED Nausea/Vomiting/Diarrhea Stated complaint: N/V / Syncopal Episodes Time Seen by Provider: 12/20/18 01:01 Source: patient, family Mode of arrival: ambulatory Limitations: no limitations Nursing Notes Reviewed: Yes Vital Signs Reviewed: Yes - History of Present Illness HPI Narrative: 68-year-old female presents to the emergency department complaining of syncopal episodes says it happened about 3 times over the last week. That she did fall the first time right after standing up did hit the front of her head never did lose consciousness. She is not any blood thinners. She then was in the shower said she fell again again did hit her head. Patient otherwise has no other complaints at this time. She is feels very weak as well as her not her normal self. Patient denied any fevers chills no cough congestion no chest pain or shortness of breath. - Related Data Home Medications Medication Instructions Recorded Confirmed Aspirin Enteric Coated [Aspirin EC] 81 mg PO DAILY 06/01/15 12/20/18 Ranitidine HCl [Zantac] 150 mg PO BID 06/01/15 12/20/18 Atorvastatin [Lipitor] 10 mg PO HS 10/22/16 12/20/18 Cyclobenzaprine HCl 5 mg PO BID PRN 10/22/16 12/20/18 Levothyroxine [Synthroid] 25 mcg PO 0630 10/22/16 12/20/18 amLODIPine [Norvasc] 5 mg PO DAILY 10/22/16 12/20/18 Liraglutide [Victoza 2-Braeden] 0.2 units SQ DAILY 12/20/18 12/20/18 Previous Rx's Medication Instructions Recorded Cyanocobalamin (Vitamin B-12) 1,000 mcg PO DAILY #30 tablet 06/05/15 [Vitamin B12] Blood Sugar Diagnostic [Glucose 1 each MC AD #90 strip 10/24/16 Test Strip] Blood-Glucose Meter [Blood Glucose 1 each SQ AD #1 each 10/24/16 Monitoring] GlipiZIDE [Glucotrol] 5 mg PO BIDWM #60 tablet 10/24/16 Lancets [Blood Lancets] 1 each SQ AD #90 each 10/24/16 Allergies Allergy/AdvReac Type Severity Reaction Status Date / Time aspirin Allergy Hives Verified 12/20/18 01:03 Sulfa (Sulfonamide Allergy Rash Verified 12/20/18 01:03 Antibiotics) metformin AdvReac Diarrhea Verified 12/20/18 01:03 povidone-iodine AdvReac Rash Verified 12/20/18 01:03 [From Betadine] soap [From Betadine] AdvReac Rash Verified 12/20/18 01:03 All systems ED: reviewed and negative except as stated. Review of Systems: As Per HPI Past Medical History - Past Medical History Attestation: Yes The following information was validated with the patient. Source: patient Medical history: Reports: diabetes, hypertension Surgical history: Reports: non-contributory, orthopedic, other Psychiatric history: Reports: no psych history LEATHER CLEANER history: Reports: no LEATHER CLEANER history - Social History Smoking Status: Unknown if ever smoked Smokeless Tobacco Status: No Alcohol use: Reports: none Drug use: Reports: none Physical Exam - General Limitations: no limitations General appearance: alert, in no apparent distress - Head Head exam: atraumatic, normocephalic, normal inspection - Eye Eye exam: Present: normal appearance, PERRL, EOMI - ENT ENT exam: normal exam, normal oropharynx, mucous membranes moist - Neck Neck exam: Present: normal inspection, full ROM, trachea midline - Chest Chest inspection: Present: normal inspection, symmetric chest wall rise - Respiratory Respiratory exam: Present: normal lung sounds bilaterally - Cardiovascular Cardiovascular exam: Present: regular rate, normal rhythm, normal heart sounds - Abdominal Exam Abdominal exam: Present: soft, Non-Tender, normal bowel sounds. Absent: tenderness, distention, guarding, rebound, rigidity - Extremities Exam Extremities exam: Present: normal inspection, full ROM. Absent: tenderness, pedal edema - Back Exam Back exam: Present: normal inspection, full ROM. Absent: tenderness - Neurological Exam Neurological exam: Present: alert, oriented X3 - Expanded Neurological Exam Patient oriented to: Present: person, place, time Coma Scale Eye Opening: Spontaneous Coma Scale Motor Response: Obeys Commands Coma Scale Verbal Response: Oriented Coma Scale Total: 15 - Psychiatric Psychiatric exam: Present: normal affect, normal mood - Skin Skin exam: Present: warm, dry, intact, normal color Course Vital Signs Temperature 98.6 F 12/20/18 01:00 Pulse Rate 117 12/20/18 01:00 Respiratory Rate 20 12/20/18 01:00 Blood Pressure 121/70 12/20/18 01:00 O2 Sat by Pulse Oximetry 95 12/20/18 01:00 Temperature 98.6 F 12/20/18 01:00 Pulse Rate 96 12/20/18 04:05 Respiratory Rate 20 12/20/18 04:05 Blood Pressure 135/67 12/20/18 04:05 O2 Sat by Pulse Oximetry 97 12/20/18 04:05 Oxygen Delivery Oxygen Delivery Room Air Nausea/Vomiting/Diarrhea - MDM Narrative Medical decision making narrative: Patient presented here with multiple episodes of syncope. EKG had no acute findings. She did show to have an AK I as well as she is very dehydrated. Also a hyponatremia. Did give patient 2 L of IV fluids. We will admit the patient to the hospital for further evaluation for her seen. As well as to get IV fluids to help with her AK I. Patient okay with this plan. Patient admitted to the hospital service in stable condition. Chest X-Ray 12/20/18 01:01 IMPRESSION: Negative portable chest. D/ / Ahsan Denise MD / Ahsan Denise MD Interpreting Provider: Ahsan Denise MD Head CT 12/20/18 01:19 IMPRESSION: No acute intracranial abnormality. D/ / Santy Jeffery / Santy Jeffery Interpreting Provider: Santy Jeffery - Medical Records Medical records reviewed: Yes I reviewed the patient's medical records. - Lab Data Lab results reviewed: Yes I reviewed the patient's lab results. Result diagrams: 12/20/18 01:01 12/20/18 01:01 Lab Results 12/20/18 12/20/18 12/20/18 Range/Units 01:01 01:01 01:01 WBC 12.1 H (4.3-11.1) K/mcL RBC 4.23 (3.82-4.97) M/mcL Hgb 13.4 (11.5-15.4) g/dL Hct 40.5 (35.3-44.9) % MCV 95.7 (83.0-100.0) fL MCH 31.7 (28.0-33.3) pg MCHC 33.1 (31.6-35.5) g/dL RDW 12.3 (11.5-14.5) % Plt Count 161 (140-400) K/mcL MPV 11.5 (9.4-12.4) fL Immature Gran % 0.6 (0-4) % Seg Neutrophils % 74.5 % Lymphocytes % 8.2 % Monocytes % 16.4 % Eosinophils % 0.0 % Basophils % 0.3 % Neutrophils # 9.1 H (1.6-8.9) K/mcL Lymphocytes # 1.0 (0.6-4.6) K/mcL Monocytes # 2.0 H (0.0-1.3) K/mcL Eosinophils # 0.0 (0.0-0.6) K/mcL Basophils # 0.0 (0.0-0.2) K/mcL PT 14.4 H (9.4-12.1) Seconds INR 1.3 APTT 29.2 (26.0-36.0) Seconds Sodium 129 L (136-145) mEq/L Potassium 4.4 (3.5-5.1) mEq/L Chloride 94 L (98-107) mEq/L Carbon Dioxide 24 (23-29) mEq/L BUN 32 H (8-23) mg/dL Creatinine 1.79 H (0.60-1.20) mg/dL Est GFR ( Amer) 34 L (> 60) Est GFR (Non-Af Amer) 28 L (> 60) BUN/Creatinine Ratio 18 (6-26) Glucose 386 H (70-105) mg/dL Calculated Osmolality 291 (280-300) Calcium 8.8 (8.6-10.3) mg/dL Total Bilirubin 1.6 H (0.3-1.0) mg/dL AST 22 (13-39) Units/L ALT 14 (7-52) Units/L Alkaline Phosphatase 76 (34-104) Units/L Troponin I < 0.03 (< 0.04) ng/mL Serum Total Protein 7.0 (6.4-8.9) g/dL Albumin 3.5 (3.5-5.7) g/dL Globulin 3.5 (2.4-3.5) g/dL Albumin/Globulin Ratio 1.0 L (1.1-2.2) Urine Color (Yellow) Urine Clarity (Clear) Urine pH (5.0-8.0) pH Units Ur Specific [place] (1.010-1.025) Urine Protein (Neg-Trace) mg/dL Urine Glucose (UA) (Normal) mg/dL Urine Ketones (Negative) mg/dL Urine Blood (Negative) Urine Nitrite (Negative) Urine Bilirubin (Negative) Urine Urobilinogen (Normal) mg/dL Ur Leukocyte Esterase (Negative) Urine Microscopic RBC (0-3) per hpf Urine Microscopic WBC (0-3) per hpf Ur Squamous Epith Cells (None-Few) per lpf Urine Bacteria (None-Few) per hpf Hyaline Casts 12/20/18 Range/Units 01:14 WBC (4.3-11.1) K/mcL RBC (3.82-4.97) M/mcL Hgb (11.5-15.4) g/dL Hct (35.3-44.9) % MCV (83.0-100.0) fL MCH (28.0-33.3) pg MCHC (31.6-35.5) g/dL RDW (11.5-14.5) % Plt Count (140-400) K/mcL MPV (9.4-12.4) fL Immature Gran % (0-4) % Seg Neutrophils % % Lymphocytes % % Monocytes % % Eosinophils % % Basophils % % Neutrophils # (1.6-8.9) K/mcL Lymphocytes # (0.6-4.6) K/mcL Monocytes # (0.0-1.3) K/mcL Eosinophils # (0.0-0.6) K/mcL Basophils # (0.0-0.2) K/mcL PT (9.4-12.1) Seconds INR APTT (26.0-36.0) Seconds Sodium (136-145) mEq/L Potassium (3.5-5.1) mEq/L Chloride (98-107) mEq/L Carbon Dioxide (23-29) mEq/L BUN (8-23) mg/dL Creatinine (0.60-1.20) mg/dL Est GFR ( Amer) (> 60) Est GFR (Non-Af Amer) (> 60) BUN/Creatinine Ratio (6-26) Glucose (70-105) mg/dL Calculated Osmolality (280-300) Calcium (8.6-10.3) mg/dL Total Bilirubin (0.3-1.0) mg/dL AST (13-39) Units/L ALT (7-52) Units/L Alkaline Phosphatase (34-104) Units/L Troponin I (< 0.04) ng/mL Serum Total Protein (6.4-8.9) g/dL Albumin (3.5-5.7) g/dL Globulin (2.4-3.5) g/dL Albumin/Globulin Ratio (1.1-2.2) Urine Color Dark Yellow (Yellow) Urine Clarity Turbid A (Clear) Urine pH 6.0 (5.0-8.0) pH Units Ur Specific [place] 1.018 (1.010-1.025) Urine Protein >=300 H (Neg-Trace) mg/dL Urine Glucose (UA) Normal (Normal) mg/dL Urine Ketones Trace H (Negative) mg/dL Urine Blood Large H (Negative) Urine Nitrite Negative (Negative) Urine Bilirubin Negative (Negative) Urine Urobilinogen Normal (Normal) mg/dL Ur Leukocyte Esterase Large H (Negative) Urine Microscopic RBC 50-100 H (0-3) per hpf Urine Microscopic WBC TNTC H (0-3) per hpf Ur Squamous Epith Cells Many H (None-Few) per lpf Urine Bacteria Many H (None-Few) per hpf Hyaline Casts Test Not Performed - Radiology Data Radiology results reviewed: Yes I reviewed the patient's radiology results. - EKG Data EKG attestation: Yes I reviewed and interpreted this EKG.
[2018-12-20] MEDS ORDERED: cefTRIAXone 1,000 MG in Water for inj. (sterile) 10 ML IVP ONE (05:26)
--- NOTE | 2018-12-20 07:14 | Internal Med History&Physical ---
Date of Encounter: 12/20/18 Time of Encounter: 07:14 Internal Medicine - H&P: HPI Chief complaint: fall Admitted From: Home Plans for Post Hospital Care: Home History of present illness: Ms. Truong is a 68 year old female with past medical history of diabetes, hypertension, hypothyroidism came in yesterday night with complain of not feeling well and with 2 episodes of fall. Patient has not been feeling well for at least 4-5 days. She felt febrile almost seen 6-7 days and had been having some increase urinary frequency but denied any burning urination. Since last 3- 4 days she had been feeling sick and her appetite decreased. She had almost no orientation since last 3-4 days and she had not been taking any of her medications. On Friday she felt nauseous but denied any episodes of vomiting. By Friday she felt better but had a syncopal episode was she was standing for 5 minutes in the kitchen. [place] somewhat blacking out before. She had another fall while in the bathroom which she could not anticipate and does not remember blacking out. She had some nausea before. Denies any episodes of diarrhea. Denies any difficulty breathing, sore throat, runny nose, headache, abdominal pain, back pain. Denies any pedal edema. She is on 3 different diabetic medication which she has not been taking. She has not been measuring her blood sugars. Patient came in yesterday night because she continued to fell sick and because of the episodes of fall. She denies any chest pain. She did had some head trauma while falling she thinks as well as mild soreness on her knee as she landed on them.. Patient was evaluated in ER and was found to have mild leukocytosis, hyponatremia, elevated BUN/creatinine and signs of UTI. EKG showed sinus tachycardia. Chest x-ray and head CT were unremarkable. Admission was requested for further management. Past Med Surg Social Fam HX - Past Medical History Medical history: diabetes, hypertension, thyroid disease Psychiatric history: no psych history - Past Surgical History Surgical History: non-contributory, orthopedic, other Additional surgical history: TUBAL. knee scopes - Social History Smoking Status: Never smoker Smokeless Tobacco Status: No Alcohol use: none Drug use: none - Family History Father Living Status: Hx Family Cardiac Disorders: Yes Internal Medicine - H&P: Meds Aspirin Enteric Coated [Aspirin EC] 81 mg PO DAILY 06/01/15 [History] Ranitidine HCl [Zantac] 150 mg PO BID 06/01/15 [History] Cyanocobalamin (Vitamin B-12) [Vitamin B12] 1,000 mcg PO DAILY #30 tablet 06/05/15 [Rx] Atorvastatin [Lipitor] 10 mg PO HS 10/22/16 [History] Cyclobenzaprine HCl 5 mg PO BID PRN 10/22/16 [History] Levothyroxine [Synthroid] 25 mcg PO 0630 10/22/16 [History] amLODIPine [Norvasc] 5 mg PO DAILY 10/22/16 [History] Blood Sugar Diagnostic [Glucose Test Strip] 1 each MC AD #90 strip 10/24/16 [Rx] Blood-Glucose Meter [Blood Glucose Monitoring] 1 each SQ AD #1 each 10/24/16 [Rx] GlipiZIDE [Glucotrol] 5 mg PO BIDWM #60 tablet 10/24/16 [Rx] Lancets [Blood Lancets] 1 each SQ AD #90 each 10/24/16 [Rx] Liraglutide [Victoza 2-Braeden] 0.2 units SQ DAILY 12/20/18 [History] Allergy/AdvReac Type Severity Reaction Status Date / Time aspirin Allergy Hives Verified 12/20/18 01:03 Sulfa (Sulfonamide Allergy Rash Verified 12/20/18 01:03 Antibiotics) metformin AdvReac Diarrhea Verified 12/20/18 01:03 povidone-iodine AdvReac Rash Verified 12/20/18 01:03 [From Betadine] soap [From Betadine] AdvReac Rash Verified 12/20/18 01:03 All Systems PM: A 10-system review of systems was performed and is negative for pertinent findings except as documented above in the HPI. - Constitutional Vitals: Temp Pulse Resp BP Pulse Ox 98.6 F 96 20 135/67 97 12/20/18 01:00 12/20/18 04:05 12/20/18 04:05 12/20/18 04:05 12/20/18 04:05 Exam: Constitutional: Vitals as noted. Conversant. No Apparent Distress. Eyes : Sclera white, conjunctiva clear, no lid lag, PEARLA. ENT : Grossly normal hearing. Oropharyngeal exam unremarkable. Moist mucus membranes. No JVD, no cervical lymphadenopathy. no thyromegaly or mass. Respiratory : Clear to auscultation bilaterally. No accessory muscle use, rales, rhonchi or wheezes Cardiovascular : RRR, +S1, +S2. no murmur, gallop, rubs. No chest wall t enderness GI/Abdominal : Soft, Non-tender, Non-distended, normal bowel sounds, no peritoneal signs. no orgenomegaly or mass appreciated. no hernia. Musculoskeletal: no deformity noted. no edema, warm extremities, pulses palpable and symmetrical in UE/LE. no calf tenderness. Knee with arthritic changes Neurological: AO X3, CN II-XII grossly intact, grossly normal motor and sensory exam. Skin: mild eyrthema on both knees with mild tenderness Pych: Good insight and judgement. Intact memory. AOx3. Internal Med - H&P Results - Labs CBC & Chem 7: 12/20/18 01:01 12/20/18 01:01 Labs: Short CBC 12/20/18 Range/Units 01:01 WBC 12.1 H (4.3-11.1) K/mcL Hgb 13.4 (11.5-15.4) g/dL Hct 40.5 (35.3-44.9) % Plt Count 161 (140-400) K/mcL Neutrophils # 9.1 H (1.6-8.9) K/mcL BMP 12/20/18 01:01 Sodium 129 L Potassium 4.4 Chloride 94 L Carbon Dioxide 24 BUN 32 H Creatinine 1.79 H Glucose 386 H Calcium 8.8 Cardiac Enzymes 12/20/18 Range/Units 01:01 Troponin I < 0.03 (< 0.04) ng/mL Liver Function 12/20/18 Range/Units 01:01 Total Bilirubin 1.6 H (0.3-1.0) mg/dL AST 22 (13-39) Units/L ALT 14 (7-52) Units/L Alkaline Phosphatase 76 (34-104) Units/L Albumin 3.5 (3.5-5.7) g/dL Urine 12/20/18 Range/Units 01:14 Urine Color Dark Yellow (Yellow) Urine Clarity Turbid A (Clear) Urine pH 6.0 (5.0-8.0) pH Units Ur Specific [place] 1.018 (1.010-1.025) Urine Protein >=300 H (Neg-Trace) mg/dL Urine Glucose (UA) Normal (Normal) mg/dL - EKG Data -: EKG Interpreted by Myself EKG shows normal: sinus rhythm Rate: tachycardia - Impressions ITS Impressions Chest X-Ray 12/20/18 01:01 IMPRESSION: Negative portable chest. D/ / Ahsan Denise MD / Ahsan Denise MD Interpreting Provider: Ahsan Denise MD Head CT 12/20/18 01:19 IMPRESSION: No acute intracranial abnormality. D/ / Santy Jeffery / Santy Jeffery Interpreting Provider: Santy Jeffery - Assessment and Plan (1) Syncope Current Visit: Yes Status: Acute Assessment and plan: Likely related to dehydration. Patient also had some characteristic of vasovagal episode. Patient does have hyponatremia and GWENDOLYN which supports dehydration. She also had decreased oral intake and was hyperglycemic when she retired. Not taking her medication for past few days. Also with some signs of UTI. Patient likely got dehydrated due to UTI and not feeling sick leading to her not taking her medications leading to hyperglycemia and dehydration Patient received 1 L in the ER. We will give 1 more bolus and continue on maintenance. We will keep patient on telemetry monitoring to evaluate for any arrhythmias. EKG is unremarkable. Echocardiogram not indicated. If no total event in 24 hours and normalization of renal function she could be discharged tomorrow. Qualifiers: Syncope type: unspecified Qualified Code(s): R55 - Syncope and collapse (2) GWENDOLYN (acute kidney injury) Current Visit: Yes Status: Acute Assessment and plan: Likely prerenal in nature given history Continue patient on IV fluids. We will give 1 more bolus and continue mainte nance fluids. (3) DVT prophylaxis Current Visit: No Status: Acute Assessment and plan: Heparin subcutaneous. (4) Hyperglycemia Current Visit: No Status: Acute Assessment and plan: Likely contributing to dehydration. Secondary to patient not taking medication and she did not feel well We will hold home oral hypoglycemics. Keep patient on Accu-Cheks and sliding scale insulin for now. (5) Urinary tract infection Current Visit: No Status: Acute Assessment and plan: Patient does have some signs of UTI including urinary frequency and feeling febrile. UA is abnormal however is a poor sample. There is some hematuria which could be from UTI as well. Reasonable to treat for 3-5 days. Urine culture ordered. 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 Hold for now given syncope. Blood pressure reasonably controlled.. Qualifiers: Hypertension type: essential hypertension Qualified Code(s): I10 - Essential (primary) hypertension (8) Obesity (BMI 30-39.9) Current Visit: No Status: Chronic Assessment and plan: Counseled on weight loss and lifestyle changes. (9) Hyponatremia Current Visit: Yes Status: Acute Assessment and plan: Likely related to dehydration Follow labs tomorrow morning. - Time Spent With Patient Total time spent is greater than 50% in coordination of care (as documented) at patient's floor/unit and/or counseling patient:
[2018-12-20] MEDS ORDERED: Ondansetron 4 MG/2 ML VIAL IVP PRN (07:38)
[2018-12-20] MEDS: Famotidine 20 MG TABLET PO SCH ×2 (08:21→22:06)
[2018-12-20] MEDS: cefTRIAXone 1,000 MG in Water for inj. (sterile) 10 ML IVP SCH (08:21)
[2018-12-20] MEDS: Acetaminophen 325 MG TABLET PO PRN ×2 (10:24→15:26)
[2018-12-20] MEDS: 0.9 % Sodium Chloride 1,000 ML IVC SCH ×2 (10:25→22:08)
[2018-12-20] MEDS: Insulin LISPRO 300 UNITS/3 ML VIAL SQ SCH ×2 (11:45→16:31)
--- NOTE | 2018-12-20 12:50 | Electrocardiograph Report ---
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
[2018-12-20] MEDS: *HR* Heparin 5,000 UNIT/ML VIAL SQ SCH ×2 (15:20→22:07)
[2018-12-21 06:25] LABS: Basophils % 0.2 %; Eosinophils % 0.2 %; Hematocrit 34.3 % (35.3-44.9); Immature Granulocytes % 0.3 % (0-4); Lymphocytes # 1.5 K/mcL (0.6-4.6); Mean Corpuscular HGB Conc 33.5 g/dL (31.6-35.5); Mean Corpuscular Hemoglobin 32.4 pg (28.0-33.3); Mean Corpuscular Volume 96.6 fL (83.0-100.0); Mean Platelet Volume 11.1 fL (9.4-12.4); Monocytes # 1.5 K/mcL (0.0-1.3); Monocytes % 17.3 %; Neutrophils # 5.7 K/mcL (1.6-8.9); Platelet Count 140 K/mcL (140-400); Red Blood Count 3.55 M/mcL (3.82-4.97); Red Cell Distribution Width 12.3 % (11.5-14.5); White Blood Count 8.7 K/mcL (4.3-11.1)
[2018-12-21 06:30] LABS: Hemoglobin 11.5 g/dL (11.5-15.4)
[2018-12-21] MEDS: *HR* Heparin 5,000 UNIT/ML VIAL SQ SCH (06:32)
[2018-12-21 06:50] LABS: Calcium 8.2 mg/dL (8.6-10.3); Potassium 3.8 mEq/L (3.5-5.1)
[2018-12-21] MEDS: Famotidine 20 MG TABLET PO SCH (08:57)
[2018-12-21] MEDS: cefTRIAXone 1,000 MG in Water for inj. (sterile) 10 ML IVP SCH (08:57)
[2018-12-21] MEDS: Insulin LISPRO 300 UNITS/3 ML VIAL SQ SCH ×3 (08:58→16:35)
[2018-12-21] MEDS ORDERED: D5% in Water 1,000 ML IVC PRN (09:11)
[2018-12-21] MEDS ORDERED: *HR* Dextrose 50 % in Water (Syg) 50 ML SYRINGE IVP PRN (09:11)
[2018-12-21] MEDS ORDERED: Dextrose Gel 15 GM/37.5 ML TUBE PO PRN ×2 (09:11)
[2018-12-21] MEDS: Acetaminophen 325 MG TABLET PO PRN (10:08)
[2018-12-21] MEDS: 0.9 % Sodium Chloride 1,000 ML IVC SCH (11:34)
--- NOTE | 2018-12-21 15:41 | Discharge Summary ---
- NOTES TO OUTPATIENT PROVIDER Notes to Outpatient Provider: Patient with a history of diabetes, hypertension, hypothyroidism who was hospitalized here for malaise, nausea or vomiting, increased urinary frequency and syncopal episodes and diagnosed with acute kidney injury and acute Cystitis. She received IV fluids and IV antibiotics with significant improvement in her symptoms. She is now doing much better and is stable to be discharged home. She will complete antibiotic course completed treatment for her episode of cystitis. Patient is growing gram-negative rods in her urine. She has previously grown Escherichia coli that sensitive to third- generation cephalosporins. As such she will be discharged on Omnicef. Orders not resulted at time of discharge: Pending orders 12/20/18 01:14 Culture,Urine [RM] Stat Date of Encounter: 12/21/18 Time of Encounter: 15:41 - Discharge Diagnosis (1) Syncope Priority: Primary Status: Resolved Qualifiers: Syncope type: unspecified Qualified Code(s): R55 - Syncope and collapse (2) Urinary tract infection Priority: Secondary Status: Acute Qualifiers: Urinary tract infection type: acute cystitis Hematuria presence: without hematuria Qualified Code(s): N30.00 - Acute cystitis without hematuria (3) Diabetes mellitus Priority: Secondary Status: Chronic Qualifiers: Diabetes mellitus type: type 2 Diabetes mellitus mcc insulin use: without mcc use Diabetes mellitus complication status: with hyperglycemia Qualified Code(s): E11.65 - Type 2 diabetes mellitus with hyperglycemia (4) Obesity (BMI 30-39.9) Priority: Secondary Status: Chronic (5) Hypertension Priority: Secondary Status: Chronic Qualifiers: Hypertension type: essential hypertension Qualified Code(s): I10 - Essential (primary) hypertension (6) Hyperglycemia Priority: Secondary Status: Acute (7) DVT prophylaxis Priority: Secondary Status: Acute (8) GWENDOLYN (acute kidney injury) Priority: Secondary Status: Resolved (9) Hyponatremia Priority: Secondary Status: Acute Hospital course: Ms. Truong is a 68 year old female Patient with a history of diabetes, hypertension, hypothyroidism who was hospitalized here for malaise, nausea or vomiting, increased urinary frequency and syncopal episodes and diagnosed with acute kidney injury and acute Cystitis. She received IV fluids and IV antibiotics with significant improvement in her symptoms. She is now doing much better and is stable to be discharged home. She will complete antibiotic course completed treatment for her episode of cystitis. Patient is growing gram-negative rods in her urine. She has previously grown Escherichia coli that sensitive to third-generation cephalosporins. As such she will be discharged on Omnicef. Discharge discussed with: patient, nurse - Time Spent with Patient Total time spent providing and/or coordinating discharge services: Time spent: Less than 30 minutes (25 min) - Discharge Medications Prescriptions: New Cefdinir [Omnicef] 300 mg PO BID #10 capsule Continued Aspirin Enteric Coated [Aspirin EC] 81 mg PO DAILY Ranitidine HCl [Zantac] 150 mg PO DAILY Cyanocobalamin (Vitamin B-12) [Vitamin B12] 1,000 mcg PO DAILY #30 tablet Atorvastatin [Lipitor] 10 mg PO HS amLODIPine [Norvasc] 5 mg PO DAILY GlipiZIDE [Glucotrol] 10 mg PO QAM GlipiZIDE [Glucotrol] 5 mg PO QPM Liraglutide [Victoza 3-Braeden] 1.8 mg SQ DAILY Levothyroxine Sodium [Levo-T] 175 mcg PO QAM Pioglitazone [Actos] 15 mg PO DAILY Budesonide/Formoterol 160/4.5 [Symbicort 160/4.5] 2 puff IH BIDR Lisinopril [Zestril] 20 mg PO DAILY hydroCHLOROthiazide [Hydrochlorothiazide] 25 mg PO DAILY Albuterol Sulfate [Ventolin Hfa] 2 puff IH Q6H Home Medications: Aspirin Enteric Coated [Aspirin EC] 81 mg PO DAILY 06/01/15 [History] Ranitidine HCl [Zantac] 150 mg PO DAILY 06/01/15 [History] Cyanocobalamin (Vitamin B-12) [Vitamin B12] 1,000 mcg PO DAILY #30 tablet 06/05/15 [Rx] Atorvastatin [Lipitor] 10 mg PO HS 10/22/16 [History] amLODIPine [Norvasc] 5 mg PO DAILY 10/22/16 [History] Albuterol Sulfate [Ventolin Hfa] 2 puff IH Q6H 12/21/18 [History] Budesonide/Formoterol 160/4.5 [Symbicort 160/4.5] 2 puff IH BIDR 12/21/18 [History] Cefdinir [Omnicef] 300 mg PO BID #10 capsule 12/21/18 [Rx] GlipiZIDE [Glucotrol] 5 mg PO QPM 12/21/18 [History] GlipiZIDE [Glucotrol] 10 mg PO QAM 12/21/18 [History] Levothyroxine Sodium [Levo-T] 175 mcg PO QAM 12/21/18 [History] Liraglutide [Victoza 3-Braeden] 1.8 mg SQ DAILY 12/21/18 [History] Lisinopril [Zestril] 20 mg PO DAILY 12/21/18 [History] Pioglitazone [Actos] 15 mg PO DAILY 12/21/18 [History] hydroCHLOROthiazide [Hydrochlorothiazide] 25 mg PO DAILY 12/21/18 [History] Allergies/Adverse Reactions: Allergy/AdvReac Type Severity Reaction Status Date / Time aspirin Allergy Hives Verified 12/20/18 01:03 Sulfa (Sulfonamide Allergy Rash Verified 12/20/18 01:03 Antibiotics) metformin AdvReac Diarrhea Verified 12/20/18 01:03 povidone-iodine AdvReac Rash Verified 12/20/18 01:03 [From Betadine] soap [From Betadine] AdvReac Rash Verified 12/20/18 01:03 Date of admission: 12/20/18 06:23 Primary care physician: Jeannette Mcallister MD Discharging clinician: Manjit Fuentes Anticipated date of discharge: 12/21/18 - Constitutional Vitals: Temp Pulse Resp BP Pulse Ox 98.1 F 85 18 125/69 99 12/21/18 11:01 12/21/18 11:01 12/21/18 11:01 12/21/18 11:01 12/21/18 11:01 Exam: General: Patient is alert, no acute distress, oriented x 3 Respiratory: Normal breath sounds. No wheezing or crackles. Cardiovascular: Regular rate and rhythm. s1 and s2 normal No clicks, rubs, gallops, or murmurs. No pedal edema Abdomen: Abdomen is soft, nontender. Bowel sounds are present Musculoskeletal: Spontaneously moving all extremities Skin: warm, dry, intact. Neuro: Alert oriented x 3 normal cranial nerves, no focal deficits - Patient Status Disposition: Home, Self-Care Condition: Good Functional capacity at discharge: uses cane/walker Overall status at discharge: patient is progressing back to baseline - Discharge Instructions Instructions: Acute Kidney Injury (DC), Syncope (DC), Diabetes Mellitus Type 2 in Adults (DC), Chronic Hypertension (DC) Follow Up With: Jeannette Mcallister MD [Primary Care Provider] - 12/31/18 11:00 am (Please follow up as schedule) Additional Instructions: Please hold hydrochlorothiazide for 2 more days and resume after that. - Diet and Activity Activity: increase activity as tolerated Diet: diabetic diet, low fat, low cholesterol, low salt diet
[2018-12-21 15:58] VITALS: BP 146/82
== END 2018-12-21 18:56 | disposition home or self-care (01) ==
LOC: 2ANU 00:45 → EMEROOARM 00:45 → SUATTDRO 06:23 → 2ANU 06:42
PROVIDERS: ADMIT Family Medicine; ATTEND Internal Medicine